=== PATIENT | female | born 1955 | race Caucasian/White ===

== ENCOUNTER → 2019-06-04 09:42 | Outpatient (CLI) | payer OTHER, MEDICARE ==
[2014-06-20 17:22] VITALS: BMI 32.3
[~2019-06-04 09:42] MED LIST: ANALPRAM HC 1%30 GM TOPICAL; CELEXA20 MG PO; CLARITIN 10 MG10 MG PO; ESGIC TABLET1 TAB PO; FLAGYL500 MG PO; GABAPENTIN100 MG PO; HYDROCODON-ACE1 EAC7 PO; HYDROCODONE-APA1 TAB PO; NORMODYNE / TR300 MG PO; PRILOSEC20 MG PO; PROCTOFOAM-HC F10 G1 RC; SINGULAIR10 MG PO; SKELAXIN800 MG PO; ZESTORETIC 20/21 TAB PO
== END | disposition home or self-care (01) ==
LOC: D.RT 09:42
PROVIDERS: ATTEND Internal Medicine Pulmonary Disease
DX: J45.909 Unspecified asthma, uncomplicated (principal)

== ENCOUNTER → 2020-08-11 09:36 | Outpatient (CLI) | payer BC, MEDICARE ==
[2014-06-20 17:22] VITALS: BMI 32.3
== END | disposition home or self-care (01) ==
LOC: D.RT 07-22 13:30
PROVIDERS: ATTEND Internal Medicine Pulmonary Disease
DX: J45.909 Unspecified asthma, uncomplicated (principal); Z11.52 Encounter for screening for COVID-19

== ENCOUNTER → 2020-08-19 16:51 | Outpatient (CLI) | payer BC, MEDICARE ==
[2014-06-20 17:22] VITALS: BMI 32.3
[2020-08-19 17:11] LABS: BASOPHILS 0.4 % (0-2); EOSINOPHILS 6.6 % (0-7); HEMATOCRIT 40.4 % (36.0-48.0); HEMOGLOBIN 12.4 g/dL (12-16); IMMATURE GRANULOCYTES 0.2 % (0-5); LYMPHOCYTE ABS# 1.57 10x3/uL (1.18-3.74); LYMPHOCYTES 28.6 % (15-50); MCH 27.9 pg (26.0-34.0); MCHC 30.7 g/dL (31.0-37.0); MEAN PLATELET VOLUME 10.8 fL (7.4-10.4); MONOCYTES 11.9 % (2-11); NEUTROPHIL ABS# 2.87 10x3/uL (1.56-6.13); NEUTROPHILS 52.3 % (40-80); PLATELET COUNT 265 10x3/uL (130-400); RBC 4.44 10x6/uL (4.00-5.40); RDW 15.7 % (11.5-14.5); WBC 5.5 10x3/uL (4.8-10.8)
[2020-08-19 17:31] LABS: ALBUMIN 4.2 g/dL (3.4-5.0); ANION GAP 17.7 mmol/L (8-16); BILIRUBIN - DIRECT 0.19 mg/dL (0.00-0.30); BILIRUBIN - TOTAL 0.8 mg/dL (0.2-1.3); CALCIUM 9.4 mg/dL (8.5-10.1); CARBON DIOXIDE 21.4 mmol/L (21.0-32.0); CREATININE - SERUM 1.3 mg/dL (0.6-1.3); POTASSIUM - SERUM 5.1 mmol/L (3.5-5.1); PROTEIN - SERUM 7.6 g/dL (6.4-8.2)
== END | disposition home or self-care (01) ==
LOC: D.LABREF 16:51
PROVIDERS: ATTEND Internal Medicine Pulmonary Disease
DX: E88.01 Alpha-1-antitrypsin deficiency (principal); L65.9 Nonscarring hair loss, unspecified